=== PATIENT | female | born 1980 | race Caucasian/White ===

== ENCOUNTER 2022-05-04 10:33 | Outpatient (CLI) | payer OTHER, SELFPAY ==
--- NOTE | 2022-05-04 10:45 | CRLHL7_ITS ---
For Patients: As a result of the Century Cures Act, medical imaging exams and procedure reports are released immediately into your electronic medical record. You may view this report before your referring provider. If you have questions, please contact your health care provider. Indication: Knee pain Technique: Right knee 3 views Comparison: None Findings: Bones: Alignment is normal. No fractures or bone lesions. Joint spaces: Joint spaces are well maintained. No degenerative changes. No sign of joint effusion. Soft tissues: Unremarkable. Impression: No findings to explain pain. Dictated by Rizwan Mcbride MD @ 05/04/2022 11:21:55 AM (Electronically Signed)
== END 2022-05-04 10:34 | disposition home or self-care (01) ==
PROVIDERS: PCP Family Medicine; Visit Provider Family Medicine
DX: M25.561 Pain in right knee (principal)
CPT/HCPCS: 73562

== ENCOUNTER 2022-09-02 11:34 | Outpatient (CLI) | payer OTHER, SELFPAY ==
--- NOTE | 2022-09-02 | CRLHL7_ITS ---
For Patients: As a result of the Century Cures Act, medical imaging exams and procedure reports are released immediately into your electronic medical record. You may view this report before your referring provider. If you have questions, please contact your health care provider. INDICATION: Cough. Rule out pneumonia. TECHNIQUE: PA and lateral chest x-ray. COMPARISON : None. FINDINGS: Clear lungs. Normal heart size and pulmonary vascularity. Normal included skeleton. Probable breast implants suboptimally visualized. Please correlate clinically. IMPRESSION: Negative two-view chest x-ray. Dictated by Kuldip Dillon MD @ 09/02/2022 2:16:05 PM (Electronically Signed)
== END 2022-09-02 11:35 | disposition home or self-care (01) ==
PROVIDERS: PCP Family Medicine; Visit Provider Family Medicine
DX: R05.9 Cough, unspecified (principal)
CPT/HCPCS: 71046

== ENCOUNTER 2024-03-02 11:02 | Outpatient (CLI) | payer OTHER, SELFPAY ==
--- NOTE | 2024-03-02 11:15 | CRLHL7_ITS ---
For Patients: As a result of the Century Cures Act, medical imaging exams and procedure reports are released immediately into your electronic medical record. You may view this report before your referring provider. If you have questions, please contact your health care provider. LEFT BREAST ULTRASOUND, 03/02/2024 CLINICAL HISTORY: LEFT breast lump. COMPARISON: None. TECHNIQUE: Real-time ultrasound imaging of LEFT breast with imaging documentation. FINDINGS: Targeted LEFT breast ultrasound performed in the area of concern adjacent to the nipple. In this location, there is an indeterminate area hypoechoic echotexture measuring 16 x 2 x 7 millimeters. The underlying implant appears normal. No fluid is present about the implant. IMPRESSION: Indeterminate hypoechoic focus beneath the nipple measuring 16 x 2 x 7 millimeters. RECOMMENDATIONS: Breast MRI. Results and recommendations were discussed with the patient at the time of the exam. A lay language report of this examination will be provided to the patient. BI-RADS Category 0. Needs additional imaging. Dictated by Rizwan Mcbride MD @ 03/02/2024 12:13:09 PM ROSIO/gwen DW/Dictated by: Rizwan Mcbride MD @ 03/02/2024 12:13:00 PM (Electronically Signed)
== END 2024-03-02 11:03 | disposition home or self-care (01) ==
LOC: US 11:03
PROVIDERS: PCP Family Medicine; Visit Provider Surgery
DX: N63.20 Unspecified lump in the left breast, unspecified quadrant (principal); Z90.13 Acquired absence of bilateral breasts and nipples
CPT/HCPCS: 76642

== ENCOUNTER 2024-03-26 14:20 | Outpatient (CLI) | payer OTHER, SELFPAY | END 2024-03-26 14:21 | disposition home or self-care (01) | LOC: MRI 14:22 | PROVIDERS: PCP Family Medicine; Visit Provider Surgery | DX: N63.20 Unspecified lump in the left breast, unspecified quadrant (principal); Z90.13 Acquired absence of bilateral breasts and nipples | CPT/HCPCS: 77049; C8908; C8937; A9575 ==

== ENCOUNTER 2024-08-10 07:09 | Outpatient (REF) | payer OTHER, SELFPAY ==
--- OUTSIDE RECORDS SUMMARY | 2024-08-10 07:11 | XMS_ITS | Clinical Summary ---
Author Organization [employer] Address [facility] [place] [address] Care Team Providers Care Compliance Investigator Name Role Phone Jessica Saucedo MD Primary Care Prov ider Allergies No known active allergies Medications estradiol-noreth indrone (1-0.5 mg) tabletIndication s:Hormone replacement therapy Take 1 Tablet by mouth once daily. 3 Packet 4 5 Active FLUoxetine (PROZAC) 40 mg capsuleIndicatio ns:Dysthymia Take 1 Capsule (40 mg) by mouth every morning. 90 Capsule 3 3 08/09/19 25 Discontinu ed(*Patien t states no longer taking) estradiol-noreth indrone, 1-0.5 mg, (ACTIVELLA) tabletIndication s:Hormone replacement therapy Take 1 Tablet by mouth once daily. 3 Packet 4 3 08/08/19 25 Discontinu ed(Reorder (E-cancel not sent)) Active Problems Problem Noted Date Diagnosed Date BRCA positive 04/27/2021 Pap smear for cervical cancer screening 04/15/19 Overview (06/04/2021): 04/2021 NIL/HPV negative Plan: Pap/HPV due 04/2026 state, incidental 01/14/2015 Overview (02/04/2015): Immune to Measles and Mumps GC negative URINE CULTURE neg Vit D low at 24 provider recommended 5000 International Units Hg 13.6 A positive Antibody screen negative Hemoglobin B screen negative RPR screen negative Rubella immune Tdap 02/04/2015 Encounters Date Type Department Care Team Description 08/08/2024 10:45 AM CDT Office Visit [facility] [address] [place] [address] Jessica Saucedo MD Physical (44 yo female) 08/07/2024 Travel 06/18/2024 Orders Only [facility] Scanner 1 scan: (1-Ord) TAREEN DERMATOLOGY, BIOPSY BY SHAVE METHOD, 06/18/2024 from Last 3 Months Immunizations Immunization Administration Dates Next Due COVID-19 vaccine ([employer] 30mcg/0.3mL) PFHADLEY 02/22/2020,01/31/2020 DTaP 12/03/1987, 4,01/13/1982,1981,1981 Hepatitis A (Adult) 03/09/2007,07/01/2004 Influenza RIV4 (Age 18+ Year s) PRESERV FREE 11/21/2020 Influenza, IIV3 (Age >=3 years) 11/16/19 14,01/01/2013,11/23/2012,2011 Influenza, IIV4 11/02/2016,11/07/2015,11/26/2014 MMR 09/15/1982 Polio Virus, Unspecified 12/03/1987,04/15,1981,1981 Tdap 08/08/2024, 5,03/09/2013,2005 Tuberculin (PPD) 09/23/2003,09/09/2003 Typhoid (injectable) 03/09/2007 Typhoid (oral) 07/01/2004 Typhoid, 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,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, 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,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 Family History Medical History Relation Name Comments Cancer-breast Maternal Grandmother 50 s Alcoholism Mother Cancer Other MGM sister, 20 s, ovarian Other Sister PCOS Relation Name Status Comments Maternal Grandmother Mother Other Sister Social History Tobacco Use Types Packs/Day Years Used Date Smoking Tobacco: Never Smokeless Tobacco: Never Tobacco Cessation:Counseling Given: Yes Alcohol Use Standard Drinks/Week Comments Yes 0 (1 standard drink = 0.6 oz pur e alcohol) 1-2 a month PHQ-2 Answer Date Recorded PHQ-2 TOTAL SCORE 0 08/08/2024 Social Connections Answer Date Recorded Do you often feel lonely or isolated from those around you? 0 08/07/2024 Financial Resource Strain Answer Date R ecorded Difficulty of Paying Living Expenses 3 08/07/2024 Difficulty of Paying Living Expenses Not on file 08/07/2024 Food Insecurity Answer Date Recorded Do you worry your food will run out before you are able to buy more? 1 08/07/2024 Transportation Needs Answer Date Record ed Does lack of transportation keep you from medica l appointments? 1 08/07/2024 Does lack of transportation keep you from work, meetings or getting things that you need? 1 08/07/2024 Housing Stability Answer Date Recorded What is your housing situation today? 1 08/07/2024 Utilities Answer Date Recorded Do you have trouble paying f or utilities (for example, heat, electricity, water, phone)? 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 Gender Identity Not on file Sexual Orientation Not on file Travel History Travel Start Travel End [place] 07/21/2024 07/25/2024 Obstetrics History Para Term AB IAB SAB Ectopic Multiple Livin g Live Births 3 1 1 1 1 2 Date Outcome GA Total Labor Labor/2nd/3rd Weight Sex Type Anes PTL Carol A1 A5 Name Clin 012 SAB 014 Term [place] Last Filed Vital Signs Vital Sign Reading Time Taken Comments Blood Pressure 108/61 08/08/2024 10:39 AM CDT Pulse 55 08/08/2024 10:39 AM CDT Temperature 36.6 C (97.9 F) 08/24/2016 8:43 AM CDT Respiratory Rate 16 08/24/2016 8:43 AM CDT Oxygen Saturation 98% 08/08/2024 10:39 AM CDT Inhaled Oxygen Concentration - - Weight 71.8 kg (158 lb 6.4 oz) 08/08/2024 10:39 AM CDT Height 162.6 cm (5' 4) 08/08/2024 10:39 AM CDT Body Mass Index 27.19 08/08/2024 10:39 AM CDT Plan of Treatment Health Maintenance Due Date Last Done Comments Hepatitis B series for 19+ (1 of 3 - 19+ 3-dose series) 2000 COVID-19 vaccine series ( season) 2023 11/21/2020, 02/22/2020, 01/31/2020 Influenza Vaccine (Season Ended) 2024 11/21/2020, 11/02/2016, 11/07/2015, Additional history exists BMI (ht and wt on same day) for age 18+ 08/08/2025 08/08/2024, 04/27/2021, 08/24/2016, Additional history exists Depression screening for age 12+ 08/08/2025 08/08/2024, 05/18/2022, 04/08/2022, Additional history exists Pap test for age 21-65 04/27/2026 , 04/27/2021, 07/16/2013 (Completed outside of [facility]) Tetanus booster 08/08/2034 08/08/2024, 01/15, 03/09/2013, Additional history exists HIV for age 15-65 Completed 02/14/2007 (Co mpleted outside of [facility]) Hepatitis C screening for age 18-79 Completed 02/14/2007 (Completed outside of [facility]) Tdap Completed 08/08/2024, 01/15, 03/09/2013, Additional history exists Pneumococcal series for age 6-49 Aged Out No longer eligible based on patient's age to complete this topic Procedures Procedure Name Priority Date/Time Associated Diagnosis Comments SCAN-OPERATIVE/PROC EDURE REPORT 06/18/2024 12:00 AM CDT MILLER HEAD ASSISTANT WET PROCESS THIN PREP PAP SCREEN IMAGED Routine 04/27/2021 12:20 PM CDT Pap smear for cervical cancer screening from Last 3 Months or Most Recently Relevant to Health Maintenance Results * SCAN-OPERATIVE/PROCEDURE REPORT (06/18/2024 12:00 AM CDT) us Scanner OTHER Final Result * MILLER HEAD ASSISTANT WET PROCESS THIN PREP PAP SCREEN IMAGED (04/27/2021 12:20 PM CDT) Case Report Gynecologic Cytology Report Case: [id number] Authorizing Provider: Jessica Saucedo Collected: 04/27/2021 1220 MD Chrissy Ordering Location: [facility] Received: 04/27/2021 1307 Clinic First Screen: Milton Fleming Specimen: MILLER HEAD ASSISTANT WET PROCESS ThinPrep Vial Screening, Cervical 05/11/2021 2:19 PM CDT [facility] ENTRAL LABORAT[facility] INTERPRETATION/ RESULT NEGATIVE FOR INTRAEPITHELIAL LESION OR MALIGNANCY (NIL) (none) 05/11/2021 2:19 PM CDT [facility] at 1419 CDT SPECIMEN ADEQUACY Satisfactory for evaluation Endocervical component present 05/11/2021 2:19 PM CDT [facility] HPV REQUEST HPV and PAP 05/11/2021 2:19 PM CDT [facility] EN[facility]AL LAB[facility] Date of LMP Hysterectomy 05/11/2021 2:19 PM CDT [facility] Last Pap Date 2017 05/11/2021 2:19 PM CDT [facility] [employer] ENTRAL LABORATORY Last Pap Result NIL 2:19 PM CDT [facility] Abnormal Pap or [place] Bx in last 5 years No 05/11/2021 2:19 PM CDT [facility] Menstrual Status Hormonally Suppressed 05/11/2021 2:19 PM CDT [facility] ENTRAL LABOR[facility] [place] Bx Done Today No 05/11/2021 2:19 PM CDT [facility] [employer] ENTRAL LABORATORY Additional Information None given 05/11/2021 2:19 PM CDT [facility] [employer] ENTRAL LABORATORY Comment: Cytology is screened at [facility] [employer] [facility] - [address] [address] and [facility] - [address] [place] [address], [place] [address] and [facility] - [address] [place] [address] Interpreted at [facility] - [address], [place] [address] Automated Review Successful 05/11/2021 2:19 PM CDT [facility] ENTR[facility] LABORATORY Comment:Specimen processed s uccessfully by automated pier master assistant device, eZWayPrep Imaging System, [employer] ANCILLARY TESTING MILLER HEAD ASSISTANT WET PROCESS HPV Ordered, Please see separate report 05/11/2021 2:19 PM CDT [facility] Note The pap test is a screening technique, not a diagnostic procedure. It is used primarily to screen for squamous cancers and precursor lesions. Published studies have shown that it is subject to both false negative and false positive results. The pap test should not be used as the sole means to diagnose or exclude pre-malignant and malignant lesions. 05/11/2021 2:19 PM CDT [facility] Other (Cervical) Non-Blood / Unknown 04/27/2021 12:20 PM CDT 04/27/2021 1:07 PM CDT Jessica Saucedo MD PATHOLOGY/CYTOLOGY Final Result [facility] [address] [place] [address], [place] from Last 3 Months or Most Recently Relevant to Health Maintenance Insurance [facility] SHARED SERVICES Care Teams Compliance Investigator Relationship Specialty Start Date End Date Jessica Saucedo MD [address] [place] [address] PCP - General Family Practice 01/15/15
[2024-08-10 09:40] LABS: Basophils Absolute Auto 0.02 K/uL (0.00-0.30); Basophils Percent Auto 0.3 % (0.0-3.0); Eosinophils Absolute Auto 0.22 K/uL (0.00-0.50); Eosinophils Percent Auto 3.7 % (0.0-7.0); Hematocrit 41.8 % (33.0-51.0); Hemoglobin* 13.9 gm/dL (12.0-16.0); Immature Granulocytes Abs Auto 0.01 K/uL (0.00-0.30); Immature Granulocytes Pct Auto 0.2 %; Lymphocytes Absolute Auto 1.85 K/uL (0.90-2.90); Lymphocytes Percent Auto 31.4 % (20-44); Mean Corpuscular HGB Conc 33 gm/dL (32-36); Mean Corpuscular Hemoglobin 33 pg (26-34); Mean Corpuscular Volume 98 fL (80-100); Monocytes Percent Auto 6.8 % (0.0-11.0); Neutrophils Percent Auto 57.6 % (42.0-72.0); Platelet Count* 179 K/uL (140-440); RDW Coefficient of Variation % 11.9 % (11.5-15.5); Red Blood Count 4.25 m/uL (4.00-5.20)
[2024-08-10 09:41] LABS: Albumin* 4.4 g/dL (3.3-5.0); Chloride* 104 mmol/L (96-114); Sodium* 140 mmol/L (135-149)
[2024-08-10 09:42] LABS: Potassium* 3.7 mmol/L (3.6-5.1)
[2024-08-10 09:44] LABS: Alanine Aminotransferase* 20 U/L (4-35); Alkaline Phosphatase* 79 U/L (40-150); Anion Gap 9 mEq/L (7-15); Aspartate Amino Transferase* 55 U/L (12-35); Bilirubin Total* 0.7 mg/dL (0.1-1.5); Blood Urea Nitrogen* 14 mg/dL (5-24); Calcium* 9.2 mg/dL (8.4-10.6); Carbon Dioxide* 27 mmol/L (20-32); Creatinine* 0.7 mg/dL (0.5-1.5); Estimated Glomerular Filt Rate 110 ml/min; Glucose* 75 mg/dL (60-115); Lipase* 110 U/L (23-300); Slide Review Reflex No; Total Protein* 6.7 g/dL (6.0-8.3)
[2024-08-10 09:45] LABS: Cholesterol* 151 mg/dL (90-199); HDL Cholesterol* 69 mg/dL (>=50); LDL Cholesterol Calculated 69 mg/dL (<100); Triglycerides* 64 mg/dL (40-149)
[2024-08-10 09:54] LABS: Hemoglobin A1C* 4.9 % (0-5.6)
--- OUTSIDE RECORDS SUMMARY | 2024-08-11 00:18 | XMS_ITS | Clinical Summary ---
Author Organization [employer] [facility] [employer] Address [facility] [place] [address] Care Team Providers Care Swiss Type Screw Machine Operator Name Role Phone Jessica Saucedo MD Primary [...] Encounters Date Type Department Care Team Description 08/10/2024 Orders Only [facility] Scanner 1 scan: (1-Ord) [facility], MULTIPLE RESULTS, 08/10/2024 08/10/2024 Orders Only [facility] Scanner 1 scan: (1-Ord) INCOMING RECORDS-LABS, [facility], 08/10/2024 08/08/2024 10:45 AM CDT Office Visit [facility] [address] [place] [address] Jessica Saucedo MD Physical (44 yo female) 08/07/2024 Travel 06/18/2024 Orders Only [facility] Scanner 1 scan: (1-Ord) TAREEN DERMATOLOGY, BIOPSY BY SHAVE METHOD, 06/18/2024 from Last 3 Months Immunizations Immunization Administration Dates Next Due COVID-19 vaccine ([employer] 30mcg/0.3mL) PF, MDV 02/22/2020,01/31/2020 DTaP 12/03/1987, 4,01/13/1982,1981,1981 Hepatitis A (Adult) [...] on file Legal Sex 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 Gender Identity Not on file Sexual Orientation Not on file Travel History Travel Start Travel End [place] 07/21/2024 07/25/2024 Obstetrics History Para Term AB IAB SAB Ectopic Multiple Livin g Live Births 3 1 1 1 1 2 Date Outcome GA Total Labor Labor/2nd/3rd Weight Sex Type Anes PTL Carol A1 A5 Name Clin 012 SAB 014 Term [place] Last Filed Vital Signs Vital Sign Reading [...] 19+ 3-dose series) 2000 COVID-19 vaccine series (2023- season) 2023 11/21/2020, 02/22/2020, 01/31/2020 Influenza Vaccine (Season Ended) 2024 11/21/2020, 11/02/2016, 11/07/2015, Additional history exists BMI (ht and wt on same day) for age 18+ 08/08/2025 08/08/2024, 04/27/2021, 08/24/2016, Additional history exists Depression screening for age 12+ 08/08/2025 08/08/2024, 05/18/2022, 04/08/2022, Additional history exists Pap test for age 21-65 04/27/2026 , 04/27/2021, 07/16/2013 (Completed outside of [facility]) Tetanus booster 08/08/2034 08/08/2024, 01/15, 03/09/2013, Additional history exists HIV for age 15-65 Completed 02/14/2007 (Co mpleted outside of [facility]) Hepatitis C screening for age 18-79 Completed 02/14/2007 (Completed outside of [facility]) Tdap Completed 08/08/2024, 01/15, 03/09/2013, Additional history exists Pneumococcal series for age 6-49 Aged Out No longer eligible based on patient's age to complete this topic Procedures Procedure Name Priority Date/Time Associated Diagnosis Comments SCAN-LABORATORY REPORT 08/10/2024 12:00 AM CDT SCAN CORRESP-LABORATORY RESULTS 08/10/2024 12:00 AM CDT SCAN-OPERATIVE/PROC EDURE REPORT 06/18/2024 12:00 AM CDT PRODUCTION CONTROL COORDINATOR THIN PREP PAP SCREEN IMAGED Routine 04/27/2021 12:20 PM CDT Pap smear for cervical cancer screening from Last 3 Months or Most Recently Relevant to Health Maintenance Results * SCAN CORRESP-LABORATORY RESULTS (08/10/2024 12:00 AM CDT) us Scanner OTHER Final Result * SCAN-LABORATORY REPORT (08/10/2024 12:00 AM CDT) us Scanner OTHER Final Result * SCAN-OPERATIVE/PROCEDURE REPORT (06/18/2024 12:00 AM CDT) us Scanner OTHER Final Result * PRODUCTION CONTROL COORDINATOR THIN PREP PAP SCREEN IMAGED (04/27/2021 12:20 PM CDT) Case Report Gynecologic Cytology Report Case: [id number] Authorizing Provider: Jessica Saucedo Collected: 04/27/2021 1220 MD Chrissy Ordering Location: [facility] Received: 04/27/2021 1307 Clinic First Screen: Milton Fleming Specimen: PRODUCTION CONTROL COORDINATOR ThinPrep Vial Screening, Cervical 05/11/2021 2:19 PM CDT [facility] INTERPRETATION/ RESULT NEGATIVE FOR INTRAEPITHELIAL LESION OR MALIGNANCY (NIL) (none) 05/11/2021 2:19 PM CDT [facility] ENTRAL LABORATORY at 1419 CDT SPECIMEN ADEQUACY Satisfactory for evaluation Endocervical component present 05/11/2021 2:19 PM CDT [facility] HPV REQUEST HPV and PAP 05/11/2021 2:19 PM CDT [facility] ENTRAL LABORATORY Date of LMP Hysterectomy 05/11/2021 2:19 PM CDT [facility] LAB[facility] Last Pap Date 2017 05/11/2021 2:19 PM CDT [facility] Last Pap Result NIL 2:19 PM CDT [facility] ENTRAL LABORATORY Abnormal Pap or [place] Bx in last 5 years No 05/11/2021 2:19 PM CDT [facility] Menstrual Status Hormonally Suppressed 05/11/2021 2:19 PM CDT [facility] [place] Bx Done Today No 05/11/2021 2:19 PM CDT [facility] Additional Information None given 05/11/2021 2:19 PM CDT [facility] Comment: Cytology is screened at [facility] - [address], [place] [address] and [facility] - [address] [place] [address] and [facility] - [address] [place] [address] Interpreted at [facility] - [address], [place] [address] Automated Review Successful 05/11/2021 2:19 PM CDT [facility] Comment:Specimen processed s uccessfully by automated plastic machine operator device, ThinPrep Imaging System, [employer] ANCILLARY TESTING PRODUCTION CONTROL COORDINATOR HPV Ordered, Please see separate report 05/11/2021 2:19 PM CDT [facility] Note The pap test is [...] and malignant lesions. 05/11/2021 2:19 PM CDT [facility] Other (Cervical) Non-Blood / Unknown 04/27/2021 12:20 PM CDT 04/27/2021 1:07 PM CDT Jessica Saucedo MD PATHOLOGY/CYTOLOGY Final Result [facility] [address] [place] [address], [place] from Last 3 Months or Most Recently Relevant to Health Maintenance Insurance [facility] SHARED SERVICES Care Teams Swiss Type Screw Machine Operator Relationship Specialty Start Date End Date Jessica Saucedo MD [address] [place] [address] PCP - General Family Practice 01/15/15
== END 2024-08-10 07:10 | disposition home or self-care (01) ==
LOC: NPINS 07:09
PROVIDERS: PCP Family Medicine; Referring Provider Family Medicine; Visit Provider Family Medicine
DX: Z13.0 Encounter for screening for diseases of the blood and blood-forming organs and certain disorders involving the immune mechanism (principal); Z13.1 Encounter for screening for diabetes mellitus; Z13.6 Encounter for screening for cardiovascular disorders; Z23 Encounter for immunization
CPT/HCPCS: 36415; 80053; 80061; 83036; 83690; 85025